=== PATIENT | male | born 1945 | race Caucasian/White ===

== ENCOUNTER → 2017-01-18 | Outpatient (CLI) | payer MEDICARE ==
[~2017-01-18] MED LIST: ASPIRIN ADULT L81 M1 PO; CARVEDILOL12.5 MG PO; CIPROFLOXACIN500 MG PO; CLONIDINE0.1 MG PO; COLACE100 MG PO; CYMBALTA60 MG PO; GABAPENTIN300 M1 PO; HUMALOG100 U/ML SC; KLOR-CON20 MEQ PO; LANTUS100 U/ML SC; LASIX40 MG PO; LISINOPRIL10 MG PO; LISINOPRIL20 MG PO; LOVENOX30 MG/0.3 SC; METFORMIN1000 MG PO; METFORMIN500 MG PO; MIRALAX17 GM/PACK PO; NEURONTIN300 MG PO; NORVASC5 MG PO; NOVOLOG1 UNIT/0.0; NOVOLOG1 UNIT/0.0 SC; OXY IR5 MG PO; OXYCODONE5 M1 PO; PRAVACHOL20 MG PO; PROTONIX40 MG PO; QUINAPRIL5 MG PO; TEMAZEPAM30 MG PO; VITAMIN D1000 IU PO; ZOFRAN4 MG PO; ZYVOX600 MG PO
== END | disposition home or self-care (01) ==
LOC: CT 15:44
DX: I10 Essential (primary) hypertension (principal); R26.89 Other abnormalities of gait and mobility; R42 Dizziness and giddiness

== ENCOUNTER 2017-01-21 10:26 | Inpatient (IN) | payer MEDICARE ==
[~2017-01-21] VITALS: Ht 170.1 cm; Wt 68.0 kg
[2017-01-21] VITALS (9 sets, daily range): BP systolic 143–210; BP diastolic 71–122
[~2017-01-21 10:26] MED LIST changes: -ASPIRIN ADULT L81 M1 PO; -LISINOPRIL20 MG PO
[2017-01-21 11:06] LABS: BASO % 0.5 % (0.0-1.0); EOS # 0.2 10*3/uL (0.0-0.4); EOS % 3.2 % (1.0-4.0); HEMATOCRIT 35.7 % (42.0-52.0); HEMOGLOBIN 11.9 g/dl (14.0-18.0); LYMPH # 0.9 10*3/uL (1.3-4.4); MEAN CORPUSCULAR HGB 27.7 pg (27.0-31.0); MEAN CORPUSCULAR HGB CONC 33.3 g/dl (33.0-37.0); MEAN PLATELET VOLUME 9.3 fl (9.6-12.3); MONO # 0.6 10*3/uL (0.1-1.0); MONO % 10.2 % (3.0-9.0); NEUT % 70.7 % (47.0-73.0); PLATELET COUNT AUTOMATED 230 10*3/uL (130-400); RED CELL DISTRI WIDTH 13.1 % (0-14.5); WHITE BLOOD COUNT 5.7 10*3/uL (4.8-10.8)
[2017-01-21 11:18] LABS: PROTHROMBIN TIME 10.1 SECONDS (8.9-12.2)
[2017-01-21 11:24] LABS: ALBUMIN 2.8 gm/dl (3.1-4.5); BILIRUBIN, TOTAL 0.4 mg/dl (0.2-1.0); TOTAL PROTEIN 6.3 gm/dL (6.4-8.2)
[2017-01-21 11:29] LABS: C-REACTIVE PROTEIN 0.56 MG/DL (0-0.3); CKMB 1.4 ng/ml (0.5-3.6); MAGNESIUM 1.7 mg/dL (1.5-2.1); POTASSIUM 3.7 mmol/L (3.5-5.1); TROPONIN I 0.016 ng/ml (<0.045)
[2017-01-21] MEDS ORDERED: ASPIRIN ADULT L81 M1 PO (13:34)
[2017-01-21] MEDS ORDERED: LISINOPRIL20 MG PO (13:34)
[2017-01-22] VITALS: BP 134/88
[2017-01-22 06:49] LABS: BASO % 0.6 % (0.0-1.0); EOS # 0.3 10*3/uL (0.0-0.4); EOS % 3.8 % (1.0-4.0); HEMATOCRIT 37.8 % (42.0-52.0); HEMOGLOBIN 12.4 g/dl (14.0-18.0); LYMPH # 1.1 10*3/uL (1.3-4.4); LYMPH % 16.2 % (27.0-41.0); MEAN CELL VOLUME 84.2 fl (80.0-94.0); MEAN CORPUSCULAR HGB 27.6 pg (27.0-31.0); MEAN CORPUSCULAR HGB CONC 32.8 g/dl (33.0-37.0); MEAN PLATELET VOLUME 9.6 fl (9.6-12.3); MONO # 0.5 10*3/uL (0.1-1.0); MONO % 7.5 % (3.0-9.0); NEUT # 4.7 10*3/uL (2.3-7.9); NEUT % 71.3 % (47.0-73.0); PLATELET COUNT AUTOMATED 272 10*3/uL (130-400); RED BLOOD COUNT 4.49 10*6/uL (4.50-5.90); RED CELL DISTRI WIDTH 13.3 % (0-14.5); WHITE BLOOD COUNT 6.6 10*3/uL (4.8-10.8)
[2017-01-22 07:32] LABS: ALBUMIN 2.6 gm/dl (3.1-4.5); POTASSIUM 3.6 mmol/L (3.5-5.1); TOTAL PROTEIN 6.1 gm/dL (6.4-8.2)
[2017-01-22 07:43] LABS: BILIRUBIN, TOTAL 0.5 mg/dl (0.2-1.0); FREE T4 1.1 ng/dl (0.76-1.46); THYROID STIM HORMONE (HS) 1.43 uIU/ml (0.358-4.75)
[2017-01-22 08:00] VITALS: BP 146/89
[2017-01-22 09:30] LABS: FOLIC ACID 10.62 ng/mL (>5.38)
[2017-01-22 12:00] VITALS: BP 150/76
[2017-01-22 16:00] VITALS: BP 118/72
[2017-01-22 20:00] VITALS: BP 116/78; BP 94/62
[2017-01-23] VITALS: BP 131/88
[2017-01-23 04:25] VITALS: BP 145/84
[2017-01-23 08:00] VITALS: BP 128/81
[2017-01-23 12:00] VITALS: BP 126/78
[2017-01-23 16:00] VITALS: BP 129/72
[2017-01-23 20:00] VITALS: BP 125/87
[2017-01-24] VITALS: BP 102/55
[2017-01-24 08:00] VITALS: BP 136/70
[2017-01-24 12:00] VITALS: BP 100/58
== END 2017-01-24 14:00 | disposition other institution (70) | DRG 637 ==
LOC: ED 10:26 → EDHOLD 12:11 → 4E 12:11
PROVIDERS: Emergency Medicine; Internal Medicine Hospice and Palliative Medicine
DX: E11.65 Type 2 diabetes mellitus with hyperglycemia (principal); E43 Unspecified severe protein-calorie malnutrition; E11.22 Type 2 diabetes mellitus with diabetic chronic kidney disease; N18.3 Chronic kidney disease, stage 3 (moderate); F33.9 Major depressive disorder, recurrent, unspecified; E87.1 Hypo-osmolality and hyponatremia; I16.0 Hypertensive urgency; D64.9 Anemia, unspecified; I12.9 Hypertensive chronic kidney disease with stage 1 through stage 4 chronic kidney disease, or unspecified chronic kidney disease; E78.5 Hyperlipidemia, unspecified; R00.0 Tachycardia, unspecified; D72.810 Lymphocytopenia; R74.8 Abnormal levels of other serum enzymes; I65.02 Occlusion and stenosis of left vertebral artery; I77.1 Stricture of artery; I69.331 Monoplegia of upper limb following cerebral infarction affecting right dominant side; Z80.0 Family history of malignant neoplasm of digestive organs; Z88.0 Allergy status to penicillin; Z85.46 Personal history of malignant neoplasm of prostate; Z79.4 Long term (current) use of insulin; Z79.82 Long term (current) use of aspirin; Z79.84 Long term (current) use of oral hypoglycemic drugs; Z79.899 Other long term (current) drug therapy; Z68.23 Body mass index [BMI] 23.0-23.9, adult

== ENCOUNTER → 2017-03-22 | Outpatient (CLI) | payer MEDICARE ==
[~2017-03-22] MED LIST changes: +ASPIRIN ADULT L81 M1 PO; +LISINOPRIL20 MG PO
[2017-03-22 10:47] LABS: BASO % 0.6 % (0.0-1.0); EOS # 0.2 10*3/uL (0.0-0.4); EOS % 2.7 % (1.0-4.0); HEMATOCRIT 34.3 % (42.0-52.0); HEMOGLOBIN 11.6 g/dl (14.0-18.0); LYMPH # 1.7 10*3/uL (1.3-4.4); LYMPH % 23.5 % (27.0-41.0); MEAN CELL VOLUME 83.9 fl (80.0-94.0); MEAN CORPUSCULAR HGB 28.4 pg (27.0-31.0); MEAN CORPUSCULAR HGB CONC 33.8 g/dl (33.0-37.0); MEAN PLATELET VOLUME 9.6 fl (9.6-12.3); MONO # 0.8 10*3/uL (0.1-1.0); MONO % 11.3 % (3.0-9.0); NEUT # 4.4 10*3/uL (2.3-7.9); NEUT % 61.3 % (47.0-73.0); PLATELET COUNT AUTOMATED 305 10*3/uL (130-400); RED BLOOD COUNT 4.09 10*6/uL (4.50-5.90); RED CELL DISTRI WIDTH 13.7 % (0-14.5); WHITE BLOOD COUNT 7.1 10*3/uL (4.8-10.8)
[2017-03-22 11:22] LABS: ALBUMIN 3.1 gm/dl (3.1-4.5); BILIRUBIN, TOTAL 0.4 mg/dl (0.2-1.0); POTASSIUM 4.3 mmol/L (3.5-5.1)
== END | disposition home or self-care (01) ==
LOC: LAB 10:18
PROVIDERS: Internal Medicine Hematology & Oncology
DX: C61 Malignant neoplasm of prostate (principal); N18.3 Chronic kidney disease, stage 3 (moderate)

== ENCOUNTER 2017-05-10 19:27 | Emergency (ER) | payer MEDICARE ==
[~2017-05-10] VITALS: Wt 81.6 kg
[2017-05-10 19:57] LABS: BASO % 0.2 % (0.0-1.0); HEMATOCRIT 43.1 % (42.0-52.0); HEMOGLOBIN 14.5 g/dl (14.0-18.0); IG # 0.1 10*3/uL (0.0-0.1); LYMPH % 5.9 % (27.0-41.0); MEAN CELL VOLUME 83.2 fl (80.0-94.0); MEAN CORPUSCULAR HGB CONC 33.6 g/dl (33.0-37.0); MEAN PLATELET VOLUME 10.4 fl (9.6-12.3); MONO # 0.8 10*3/uL (0.1-1.0); MONO % 5.1 % (3.0-9.0); NEUT # 14.5 10*3/uL (2.3-7.9); NEUT % 88.4 % (47.0-73.0); PLATELET COUNT AUTOMATED 328 10*3/uL (130-400); RED BLOOD COUNT 5.18 10*6/uL (4.50-5.90); RED CELL DISTRI WIDTH 13.4 % (0-14.5); WHITE BLOOD COUNT 16.4 10*3/uL (4.8-10.8)
[2017-05-10 20:08] LABS: PROTHROMBIN TIME 10.6 SECONDS (9.0-12.4)
[2017-05-10 20:13] LABS: BILIRUBIN NEGATIVE (NEGATIVE); BLOOD 2+ (NEGATIVE); CLARITY CLEAR (CLEAR); COLOR YELLOW (YELLOW); GLUCOSE 3+ (NEGATIVE); KETONE 1+ (NEGATIVE); LEUKO ESTERASE NEGATIVE (NEGATIVE); NITRITE NEGATIVE (NEGATIVE); PROTEIN 2+ (NEGATIVE); UROBILINOGEN 0.2 E.U./dl (0.2-1.0)
[2017-05-10 20:20] LABS: BACTERIA TRACE; URINE REFLEX COMMENT YES (NO)
[2017-05-10 20:22] LABS: ALBUMIN 3.5 gm/dl (3.1-4.5); BILIRUBIN, TOTAL 0.7 mg/dl (0.2-1.0); POTASSIUM 5.7 mmol/L (3.5-5.1)
[2017-05-10 20:26] LABS: TROPONIN I 0.111 ng/ml (<0.045)
[2017-05-10 21:54] LABS: LA>2 REFLEX 2 HR DRAW NOW
== END 2017-05-10 22:41 | disposition short-term general hospital (02) ==
LOC: ED 19:27
PROVIDERS: Nurse Practitioner Family
DX: R73.9 Hyperglycemia, unspecified (principal); R41.82 Altered mental status, unspecified; E87.2 Acidosis; I12.9 Hypertensive chronic kidney disease with stage 1 through stage 4 chronic kidney disease, or unspecified chronic kidney disease; E11.22 Type 2 diabetes mellitus with diabetic chronic kidney disease; N18.9 Chronic kidney disease, unspecified; E78.5 Hyperlipidemia, unspecified; Z86.73 Personal history of transient ischemic attack (TIA), and cerebral infarction without residual deficits

== ENCOUNTER 2017-06-01 17:14 | Emergency (ER) | payer MEDICARE ==
[~2017-06-01] VITALS: Ht 167.6 cm; Wt 69.9 kg
[2017-06-01 17:50] LABS: BASO % 0.5 % (0.0-1.0); EOS # 0.3 10*3/uL (0.0-0.4); EOS % 4.5 % (1.0-4.0); HEMOGLOBIN 7.4 g/dl (14.0-18.0); LYMPH # 1.1 10*3/uL (1.3-4.4); MEAN CELL VOLUME 88.1 fl (80.0-94.0); MEAN CORPUSCULAR HGB 28.4 pg (27.0-31.0); MEAN CORPUSCULAR HGB CONC 32.2 g/dl (33.0-37.0); MEAN PLATELET VOLUME 8.6 fl (9.6-12.3); MONO # 0.8 10*3/uL (0.1-1.0); MONO % 12.8 % (3.0-9.0); NEUT # 3.7 10*3/uL (2.3-7.9); NEUT % 62.4 % (47.0-73.0); PLATELET COUNT AUTOMATED 349 10*3/uL (130-400); RED BLOOD COUNT 2.61 10*6/uL (4.50-5.90)
[2017-06-01 18:00] LABS: ACT PARTIAL THROMBO TIME 30.6 SECONDS (20.8-31.5)
[2017-06-01 18:06] LABS: CREATININE 1.88 mg/dL (0.70-1.30); MAGNESIUM 1.6 mg/dL (1.5-2.1); POTASSIUM 4.3 mmol/L (3.5-5.1); TOTAL PROTEIN 6.2 gm/dL (6.4-8.2)
[2017-06-01] MEDS ORDERED: [UNRECOGNIZED DRUG - REMARK] IV (18:22)
[2017-06-04] MEDS ORDERED: VITAMIN D31000 UNIT PO (10:27)
[2017-06-04] MEDS ORDERED: PROBIOTIC250 MG PO (10:27)
[2017-06-04] MEDS ORDERED: LIPITOR10 MG PO (10:28)
[2017-06-04] MEDS ORDERED: OMEPRAZOLE D/R20 MG PO (10:29)
[2017-06-04] MEDS ORDERED: MULTI-VITAMIN1 EACH PO (10:30)
[2017-06-04] MEDS ORDERED: METOPROLOL PO (10:30)
[2017-06-04] MEDS ORDERED: [UNRECOGNIZED DRUG - SUPPLY] IV (10:32)
[2017-06-04] MEDS ORDERED: HEPARIN 1010 UNIT/1 IV (10:32)
[2017-06-04] MEDS ORDERED: LANTUS SOL100 UNIT/1 SC (10:33)
[2017-06-04] MEDS ORDERED: BIOTENE DRY MOUTH (10:35)
[2017-06-04] MEDS ORDERED: [UNRECOGNIZED DRUG - OTHER] (10:37)
[2017-06-04] MEDS ORDERED: VANCOMYCIN HYD750 MG IV (10:39)
== END 2017-06-01 20:01 | disposition home or self-care (01) ==
LOC: ED 17:14
PROVIDERS: Emergency Medicine
DX: D64.9 Anemia, unspecified (principal); R53.83 Other fatigue; I12.9 Hypertensive chronic kidney disease with stage 1 through stage 4 chronic kidney disease, or unspecified chronic kidney disease; E11.22 Type 2 diabetes mellitus with diabetic chronic kidney disease; N18.9 Chronic kidney disease, unspecified; E78.5 Hyperlipidemia, unspecified; E11.65 Type 2 diabetes mellitus with hyperglycemia; Z98.890 Other specified postprocedural states; Z85.46 Personal history of malignant neoplasm of prostate; Z86.73 Personal history of transient ischemic attack (TIA), and cerebral infarction without residual deficits; Z88.0 Allergy status to penicillin; Z79.82 Long term (current) use of aspirin; Z79.899 Other long term (current) drug therapy

== ENCOUNTER → 2017-06-04 | Outpatient (CLI) | payer MEDICARE ==
[2017-06-04] VITALS (18 sets, daily range): BP systolic 109–185; BP diastolic 63–92
[~2017-06-04] MED LIST changes: +BIOTENE DRY MOUTH; +HEPARIN 1010 UNIT/1 IV; +LANTUS SOL100 UNIT/1 SC; +LIPITOR10 MG PO; +METOPROLOL PO; +MULTI-VITAMIN1 EACH PO; +OMEPRAZOLE D/R20 MG PO; +PROBIOTIC250 MG PO; +VANCOMYCIN HYD750 MG IV; +VITAMIN D31000 UNIT PO; +[UNRECOGNIZED DRUG - OTHER]; +[UNRECOGNIZED DRUG - REMARK] IV; +[UNRECOGNIZED DRUG - SUPPLY] IV
--- NOTE | 2017-06-04 15:15 | NUR ---
RECEIVED FROM SURGERY FOR BLOOD TRANSFUSION. AWAITING LAB TO DRAW THE IN VIVO DRAW.
--- NOTE | 2017-06-04 17:41 | NUR ---
PATIENT DOES NOT KNOW HIS MED LIST - JAIL BRINGS IT IN AND HE TAKES IT PER THE PATIENT.
--- NOTE | 2017-06-04 18:26 | NUR ---
CALLED [facility] THE [employer] LOGGER TO [employer] STRIPPER THE PATIENT - PATIENT HAD A 2ND SMALL BOWEL MOVEMENT WITH URINE. PICC LINE FLUSHED
--- NOTE | 2017-06-04 18:34 | NUR ---
PATIENT LEFT THE HOSPITAL
== END | disposition home or self-care (01) ==
LOC: TRNFUSION 06-03 10:56
DX: D58.2 Other hemoglobinopathies (principal)

== ENCOUNTER → 2017-09-11 | Outpatient (CLI) | payer MEDICARE ==
[2017-09-11 10:32] LABS: BASO % 0.5 % (0.0-1.0); EOS # 0.2 10*3/uL (0.0-0.4); EOS % 3.7 % (1.0-4.0); LYMPH # 1.4 10*3/uL (1.3-4.4); MEAN CELL VOLUME 83.1 fl (80.0-94.0); MEAN CORPUSCULAR HGB 28.6 pg (27.0-31.0); MEAN CORPUSCULAR HGB CONC 34.4 g/dl (33.0-37.0); MEAN PLATELET VOLUME 9.2 fl (9.6-12.3); MONO # 0.6 10*3/uL (0.1-1.0); MONO % 9.5 % (3.0-9.0); NEUT # 3.7 10*3/uL (2.3-7.9); NEUT % 61.8 % (47.0-73.0); PLATELET COUNT AUTOMATED 247 10*3/uL (130-400); RED BLOOD COUNT 3.85 10*6/uL (4.50-5.90); RED CELL DISTRI WIDTH 14.8 % (0-14.5); WHITE BLOOD COUNT 5.9 10*3/uL (4.8-10.8)
[2017-09-11 10:38] LABS: ALBUMIN 3.3 gm/dl (3.1-4.5); CREATININE 1.97 mg/dL (0.70-1.30); POTASSIUM 3.7 mmol/L (3.5-5.1); TOTAL PROTEIN 7.1 gm/dL (6.4-8.2)
== END | disposition home or self-care (01) ==
LOC: LAB 09:48
PROVIDERS: Internal Medicine Hematology & Oncology
DX: C61 Malignant neoplasm of prostate (principal); N18.3 Chronic kidney disease, stage 3 (moderate)

== ENCOUNTER 2017-10-17 20:15 | Inpatient (IN) | payer MEDICARE ==
[2017-10-17] VITALS (9 sets, daily range): BP systolic 154–200; BP diastolic 90–130
[~2017-10-17] VITALS: Ht 172.7 cm; Wt 70.4 kg
--- NOTE | ~2017-10-17 | CON ---
[place], [place] REPORT OF CONSULTATION NAME: CIARA AVILES UNIT #: [id number] ROOM: 409 DOCTOR: GEOVANNI GODFREY MD BIRTHDATE: [birth year] DOS: 10/23/2017 CHIEF COMPLAINT: "I realize there is nothing happening anymore." SUMMARY OF THE VISIT: The patient was interviewed with his son in the room. He reports that he has been here for about 5 or 6 days, he is uncertain. He states that he is feeling much better now. He no longer complained of aliens being here and the trees being infected by some type of foreign substance. He was fairly conversant and pleasant. Son reports that suddenly yesterday the symptoms cleared and he has been normal for the last 36-48 hours. MENTAL STATUS: He is alert and oriented with just some time gaps, but that is more than likely related to him being in the hospital. He is pleasant and cooperative. He convincingly denies psychotic symptoms. There is no leslie present. Short term, intermediate, and long-term memory are relatively intact. PLAN: At this point, this seems like a resolved delirium. I see no further criteria to deem him incompetent nor do I have criteria to suggest that he require inpatient hospitalization in the [facility]. At this point, the patient can safely be discharged back into the community. GEOVANNI GODFREY MD CM:CONSTR:REPORT OF CONSULTATION 1056 10/23/17 1414 interface
--- NOTE | ~2017-10-17 | CON ---
[place], [place] REPORT OF CONSULTATION NAME: CIARA AVILES UNIT #: [id number] ROOM: 409 DOCTOR: GEOVANNI GODFREY MD BIRTHDATE: [birth year] DOS: 10/21/2017 CHIEF COMPLAINT: "Oh, I am here because I had a stroke." HISTORY OF PRESENT ILLNESS: This is a 72-year-old white male who presented to the Emergency Room at [facility] with new onset mental status changes and increased left-sided weakness. Since he has been hospitalized here at the hospital, the patient has been rather bizarre. He has shifted in and out of being alert and oriented to periods of extreme confusion as well as extreme paranoia. Most recently, he believes that aliens have come down to the planet and have infected trees with some type of substance that if you touch the tree, you will become weird and wacky. He called his family members to warn them not to touch the trees. He believes that things are being piped into his room and that people are trying to get him. His daughter who was present in the room at that time stated that the last time something like this happen it was because he had MRSA of the blood and once this was cleared his mental status completely cleared. This is a new onset of confusion and psychosis. MENTAL STATUS: He is alert and oriented with some time gaps. Mood does seem to be fairly euthymic. Affect appropriate. He is very delusional and paranoid. For the most part memory is fairly intact. DIAGNOSIS: Brief psychotic disorder. PLAN: I have ordered multiple lab work for vitamin D, vitamin B12, serum ammonia and TSH just to further rule out any organic factors. I will hold off on starting him on any medication for the psychosis. He would be a good candidate for the [facility]. Once you feel that he is medically cleared, he would have to come voluntary as he is not suicidal or homicidal. Please keep me informed of your decision and I will be glad to assist you in the future. GEOVANNI GODFREY MD CM:CONSTR:REPORT OF CONSULTATION 1034 10/21/17 1041 interface
[2017-10-17 20:47] LABS: BASO % 0.5 % (0.0-1.0); EOS # 0.2 10*3/uL (0.0-0.4); EOS % 1.8 % (1.0-4.0); HEMOGLOBIN 11.5 g/dl (14.0-18.0); LYMPH % 11.8 % (27.0-41.0); MEAN CELL VOLUME 83.7 fl (80.0-94.0); MEAN CORPUSCULAR HGB 28.3 pg (27.0-31.0); MEAN CORPUSCULAR HGB CONC 33.8 g/dl (33.0-37.0); MEAN PLATELET VOLUME 9.4 fl (9.6-12.3); MONO # 0.5 10*3/uL (0.1-1.0); MONO % 6.2 % (3.0-9.0); NEUT # 6.6 10*3/uL (2.3-7.9); NEUT % 79.3 % (47.0-73.0); PLATELET COUNT AUTOMATED 269 10*3/uL (130-400); RED BLOOD COUNT 4.06 10*6/uL (4.50-5.90); RED CELL DISTRI WIDTH 13.1 % (0-14.5); WHITE BLOOD COUNT 8.3 10*3/uL (4.8-10.8)
[2017-10-17 21:03] LABS: ALBUMIN 3.2 gm/dl (3.1-4.5); CREATININE 2.18 mg/dL (0.70-1.30); POTASSIUM 5.2 mmol/L (3.5-5.1); TOTAL PROTEIN 7.2 gm/dL (6.4-8.2)
[2017-10-17 21:09] LABS: ACT PARTIAL THROMBO TIME 26.8 SECONDS (20.8-31.5)
[2017-10-17 21:11] LABS: THYROID STIM HORMONE (HS) 1.85 uIU/ml (0.358-4.75)
[2017-10-17 22:11] LABS: BILIRUBIN NEGATIVE (NEGATIVE); BLOOD TRACE-LYSED (NEGATIVE); CLARITY SL CLOUDY (CLEAR); COLOR YELLOW (YELLOW); GLUCOSE 3+ (NEGATIVE); KETONE TRACE (NEGATIVE); LEUKO ESTERASE NEGATIVE (NEGATIVE); NITRITE NEGATIVE (NEGATIVE); SPECIFIC GRAVITY 1.015 (1.005-1.030); UROBILINOGEN 0.2 E.U./dl (0.2-1.0)
[2017-10-17 22:12] LABS: URINE AMPHETAMINES < 1000 (1000ng/ml); URINE BARBITURATES < 200 (200ng/ml); URINE BENZODIAZEPINES < 200 (200ng/ml); URINE CANNABINOIDS (THC) < 50 (50ng/ml); URINE COCAINE < 300 (300ng/ml); URINE METHADONE < 300 (300ng/ml); URINE OPIATES < 300 (300ng/ml)
[2017-10-17 22:13] LABS: URINE PHENCYCLIDINE < 25 (25ng/ml)
[2017-10-17 22:22] LABS: BACTERIA 1+
[2017-10-17 22:24] LABS: EPITHELIAL CELLS 0-2
[2017-10-17] MEDS ORDERED: NEURONTIN300 MG PO (22:48)
[2017-10-17] MEDS ORDERED: TRAZODONE50 MG PO (22:48)
[2017-10-17] MEDS ORDERED: OMEPRAZOLE20 M2 PO (22:49)
[2017-10-17] MEDS ORDERED: LOPRESSOR25 MG PO (22:49)
[2017-10-17] MEDS ORDERED: VITAMIN D-32000 UNI1 PO (22:50)
[2017-10-17] MEDS ORDERED: MILLTRIUM SENI1 EACH PO (22:51)
[2017-10-17] MEDS ORDERED: LIPITOR10 MG PO (22:52)
[2017-10-17] MEDS ORDERED: ASPIRIN81 M1 PO (22:52)
[2017-10-17] MEDS ORDERED: IRON325 M1 PO (22:53)
[2017-10-17] MEDS ORDERED: HUMALOG MI100 UNIT/1 SQ (22:54)
[2017-10-17] MEDS ORDERED: LANTUS SOL100 UNIT/1 SQ (22:54)
[2017-10-17] MEDS ORDERED: LOMOTIL 2.5-0.1 EACH PO (22:55)
[2017-10-18] VITALS: BP 172/83
[2017-10-18 02:43] LABS: BASO % 0.4 % (0.0-1.0); EOS # 0.1 10*3/uL (0.0-0.4); EOS % 1.1 % (1.0-4.0); HEMATOCRIT 30.9 % (42.0-52.0); HEMOGLOBIN 10.4 g/dl (14.0-18.0); LYMPH # 1.1 10*3/uL (1.3-4.4); LYMPH % 11.8 % (27.0-41.0); MEAN CORPUSCULAR HGB 28.3 pg (27.0-31.0); MEAN CORPUSCULAR HGB CONC 33.7 g/dl (33.0-37.0); MEAN PLATELET VOLUME 9.4 fl (9.6-12.3); MONO # 0.6 10*3/uL (0.1-1.0); MONO % 6.7 % (3.0-9.0); NEUT # 7.6 10*3/uL (2.3-7.9); NEUT % 79.6 % (47.0-73.0); PLATELET COUNT AUTOMATED 263 10*3/uL (130-400); RED BLOOD COUNT 3.68 10*6/uL (4.50-5.90); RED CELL DISTRI WIDTH 13.1 % (0-14.5); WHITE BLOOD COUNT 9.5 10*3/uL (4.8-10.8)
[2017-10-18 03:03] LABS: ALBUMIN 2.6 gm/dl (3.1-4.5); CREATININE 1.93 mg/dL (0.70-1.30); FREE T4 1.21 ng/dl (0.76-1.46); PHOSPHOROUS 2.1 mg/dL (2.5-4.9); POTASSIUM 4.3 mmol/L (3.5-5.1); TOTAL PROTEIN 5.9 gm/dL (6.4-8.2)
[2017-10-18 03:08] LABS: THYROID STIM HORMONE (HS) 0.852 uIU/ml (0.358-4.75)
[2017-10-18 04:00] VITALS: BP 150/78
[2017-10-18 08:00] VITALS: BP 120/66
[2017-10-18] MEDS ORDERED: HUMALOG100 UNIT/2 SC (11:15)
[2017-10-18 12:00] VITALS: BP 90/46
[2017-10-18 16:00] VITALS: BP 95/44
[2017-10-18 20:00] VITALS: BP 134/67
[2017-10-19] VITALS: BP 129/55
[2017-10-19 06:29] LABS: BASO % 0.4 % (0.0-1.0); EOS # 0.1 10*3/uL (0.0-0.4); EOS % 1.2 % (1.0-4.0); HEMATOCRIT 29.8 % (42.0-52.0); LYMPH # 1.9 10*3/uL (1.3-4.4); MEAN CELL VOLUME 85.6 fl (80.0-94.0); MEAN CORPUSCULAR HGB 28.7 pg (27.0-31.0); MEAN CORPUSCULAR HGB CONC 33.6 g/dl (33.0-37.0); MONO % 10.6 % (3.0-9.0); NEUT # 6.3 10*3/uL (2.3-7.9); NEUT % 67.3 % (47.0-73.0); PLATELET COUNT AUTOMATED 276 10*3/uL (130-400); RED BLOOD COUNT 3.48 10*6/uL (4.50-5.90); RED CELL DISTRI WIDTH 13.4 % (0-14.5); WHITE BLOOD COUNT 9.3 10*3/uL (4.8-10.8)
[2017-10-19 06:41] LABS: CREATININE 2.08 mg/dL (0.70-1.30); POTASSIUM 3.6 mmol/L (3.5-5.1)
[2017-10-19 08:00] VITALS: BP 114/62
[2017-10-19 12:00] VITALS: BP 113/51
[2017-10-19 16:54] VITALS: BP 113/83
[2017-10-19 20:39] VITALS: BP 177/75
[2017-10-20] VITALS: BP 114/76
[2017-10-20 06:06] LABS: BASO % 0.5 % (0.0-1.0); EOS # 0.2 10*3/uL (0.0-0.4); EOS % 3.8 % (1.0-4.0); HEMATOCRIT 29.4 % (42.0-52.0); HEMOGLOBIN 9.9 g/dl (14.0-18.0); LYMPH # 1.3 10*3/uL (1.3-4.4); LYMPH % 21.3 % (27.0-41.0); MEAN CELL VOLUME 86.2 fl (80.0-94.0); MEAN CORPUSCULAR HGB CONC 33.7 g/dl (33.0-37.0); MEAN PLATELET VOLUME 9.5 fl (9.6-12.3); MONO # 0.6 10*3/uL (0.1-1.0); MONO % 8.9 % (3.0-9.0); NEUT # 4.1 10*3/uL (2.3-7.9); NEUT % 65.2 % (47.0-73.0); PLATELET COUNT AUTOMATED 253 10*3/uL (130-400); RED BLOOD COUNT 3.41 10*6/uL (4.50-5.90); RED CELL DISTRI WIDTH 13.3 % (0-14.5); WHITE BLOOD COUNT 6.3 10*3/uL (4.8-10.8)
[2017-10-20 06:33] LABS: CREATININE 1.94 mg/dL (0.70-1.30)
[2017-10-20 08:00] VITALS: BP 114/70
[2017-10-20 10:09] VITALS: BP 166/89
[2017-10-20 16:00] VITALS: BP 165/85
[2017-10-20 20:00] VITALS: BP 159/78
[2017-10-21] VITALS: BP 197/84
[2017-10-21 04:00] VITALS: BP 156/90
[2017-10-21 06:36] LABS: CREATININE 1.83 mg/dL (0.70-1.30); POTASSIUM 4.2 mmol/L (3.5-5.1)
[2017-10-21 06:45] LABS: BASO % 0.5 % (0.0-1.0); EOS # 0.3 10*3/uL (0.0-0.4); EOS % 4.5 % (1.0-4.0); HEMATOCRIT 30.4 % (42.0-52.0); HEMOGLOBIN 10.2 g/dl (14.0-18.0); LYMPH # 1.1 10*3/uL (1.3-4.4); LYMPH % 16.9 % (27.0-41.0); MEAN CELL VOLUME 84.9 fl (80.0-94.0); MEAN CORPUSCULAR HGB 28.5 pg (27.0-31.0); MEAN CORPUSCULAR HGB CONC 33.6 g/dl (33.0-37.0); MEAN PLATELET VOLUME 9.7 fl (9.6-12.3); MONO # 0.7 10*3/uL (0.1-1.0); MONO % 10.8 % (3.0-9.0); NEUT # 4.4 10*3/uL (2.3-7.9); NEUT % 66.8 % (47.0-73.0); PLATELET COUNT AUTOMATED 276 10*3/uL (130-400); RED BLOOD COUNT 3.58 10*6/uL (4.50-5.90); RED CELL DISTRI WIDTH 13.1 % (0-14.5); WHITE BLOOD COUNT 6.5 10*3/uL (4.8-10.8)
[2017-10-21 08:00] VITALS: BP 134/74
[2017-10-21 12:00] VITALS: BP 128/80
[2017-10-21 12:43] LABS: VITAMIN D, 25-HYDROXY 25.2 ng/mL (30-100)
[2017-10-21 16:00] VITALS: BP 137/73
[2017-10-21 20:00] VITALS: BP 144/83
[2017-10-22] VITALS: BP 112/64
[2017-10-22 05:54] LABS: CREATININE 1.76 mg/dL (0.70-1.30); POTASSIUM 3.9 mmol/L (3.5-5.1)
[2017-10-22 06:35] LABS: BASO % 0.3 % (0.0-1.0); EOS # 0.3 10*3/uL (0.0-0.4); EOS % 3.6 % (1.0-4.0); HEMATOCRIT 27.8 % (42.0-52.0); HEMOGLOBIN 9.4 g/dl (14.0-18.0); LYMPH # 1.3 10*3/uL (1.3-4.4); LYMPH % 18.8 % (27.0-41.0); MEAN CELL VOLUME 85.8 fl (80.0-94.0); MEAN CORPUSCULAR HGB CONC 33.8 g/dl (33.0-37.0); MEAN PLATELET VOLUME 9.6 fl (9.6-12.3); MONO # 0.8 10*3/uL (0.1-1.0); MONO % 11.4 % (3.0-9.0); NEUT # 4.5 10*3/uL (2.3-7.9); NEUT % 65.6 % (47.0-73.0); PLATELET COUNT AUTOMATED 266 10*3/uL (130-400); RED BLOOD COUNT 3.24 10*6/uL (4.50-5.90); RED CELL DISTRI WIDTH 13.3 % (0-14.5); WHITE BLOOD COUNT 6.9 10*3/uL (4.8-10.8)
[2017-10-22 08:00] VITALS: BP 109/59
[2017-10-22 12:00] VITALS: BP 117/73
[2017-10-22] MEDS ORDERED: CLOPIDOGREL75 MG PO (14:34)
[2017-10-22 16:00] VITALS: BP 126/77
[2017-10-22 20:00] VITALS: BP 135/77
[2017-10-23] VITALS: BP 155/73
[2017-10-23 08:03] VITALS: BP 100/70
[2017-10-23 11:54] VITALS: BP 103/59
[2017-10-23 16:00] VITALS: BP 102/77
[2017-10-23 20:00] VITALS: BP 95/71
[2017-10-24] VITALS: BP 121/84
[2017-10-24 07:53] VITALS: BP 120/55
[2017-10-24 12:06] VITALS: BP 114/54
[2017-10-24 16:00] VITALS: BP 133/70
[2017-10-24] MEDS ORDERED: NIFEDIPINE ER30 M1 PO (16:39)
[2017-10-24] MEDS ORDERED: AGGRENOX 25/2001 EA PO (16:39)
== END 2017-10-24 17:08 | disposition other institution (70) | DRG 64 ==
LOC: ED 20:15 → 4E 21:59 → EDHOLD 21:59 → ICCU 22:32 → 4E 10-18 13:01
PROVIDERS: Family Medicine; Internal Medicine; Psychiatry & Neurology Psychiatry
DX: I63.9 Cerebral infarction, unspecified (principal); R65.11 Systemic inflammatory response syndrome (SIRS) of non-infectious origin with acute organ dysfunction; G93.41 Metabolic encephalopathy; E87.1 Hypo-osmolality and hyponatremia; I16.1 Hypertensive emergency; F23 Brief psychotic disorder; G81.94 Hemiplegia, unspecified affecting left nondominant side; E13.22 Other specified diabetes mellitus with diabetic chronic kidney disease; D64.9 Anemia, unspecified; Z51.5 Encounter for palliative care; E13.65 Other specified diabetes mellitus with hyperglycemia; D72.810 Lymphocytopenia; E87.5 Hyperkalemia; E83.39 Other disorders of phosphorus metabolism; F32.9 Major depressive disorder, single episode, unspecified; I12.9 Hypertensive chronic kidney disease with stage 1 through stage 4 chronic kidney disease, or unspecified chronic kidney disease; Z66 Do not resuscitate; I16.0 Hypertensive urgency; R80.9 Proteinuria, unspecified; E87.8 Other disorders of electrolyte and fluid balance, not elsewhere classified; E13.649 Other specified diabetes mellitus with hypoglycemia without coma; N18.3 Chronic kidney disease, stage 3 (moderate); Z86.14 Personal history of Methicillin resistant Staphylococcus aureus infection; Z85.46 Personal history of malignant neoplasm of prostate; Z80.0 Family history of malignant neoplasm of digestive organs; Z79.899 Other long term (current) drug therapy; Z79.4 Long term (current) use of insulin; Z79.82 Long term (current) use of aspirin; Z88.0 Allergy status to penicillin

== ENCOUNTER 2017-11-01 12:54 | Inpatient (IN) | payer MEDICARE ==
[~2017-11-01] VITALS: Ht 172.7 cm; Wt 76.4 kg
--- NOTE | ~2017-11-01 | PR ---
[place], [place] PROGRESS NOTE [id number] UNIT #: [id number] ROOM: 504 DOCTOR: BRIANA OBREGON MD BIRTHDATE: [birth year] DOS: SUBJECTIVE: The patient is doing fine without any complaints, but he looks quite short of breath, he easily falls into sleep. OBJECTIVE: VITAL SIGNS: Graphic trend shows a pressure 136/77, pulse of 109, respirations 19, temperature 98.4. LUNGS: Diminished breath sounds, scattered rales and rhonchi bilaterally. HEART: Regular. ABDOMEN: Obese, soft. EXTREMITIES: Without any edema. ASSESSMENT AND PLAN: 1. The patient with bilateral pneumonia on a CT scan of the chest, on multiple antibiotics without much improvement. He continues to remain hypoxic. 2. Acute hypoxic respiratory failure, on high flow O2 with further worsening in his overall condition. He has received maximal treatment plan for almost a week without any improvement at all and so I think at this time, the patient should be considered for hospice. 3. Acute kidney injury seems to be fairly stable. 4. Congestive heart failure, possible diastolic, already on p.o. diuretics. The patient's overall prognosis remains poor and guarded. Social Service will be consulted for hospice care. BRIANA OBREGON MD CM:PNTRANS 0822 BRIANA OBREGON MD 11/08/17 0903 interface
--- NOTE | ~2017-11-01 | PR ---
[place], [place] PROGRESS NOTE NAME: CIARA AVILES UNIT #: [id number] ROOM: 504 DOCTOR: BRIANA OBREGON MD BIRTHDATE: [birth year] DOS: SUBJECTIVE: The patient is fairly awake and alert and oriented this morning and he looks much more stronger and is able to communicate well this morning, in fact he is starting to get grumpy. OBJECTIVE: VITAL SIGNS: Graphic trend shows blood pressure of 120/74, pulse of 117, respirations 18, temperature 98.7, T-max of 100.4. LUNGS: Diminished breath sounds. Scattered rales heard bilaterally. HEART: Regular. ABDOMEN: Obese, soft. EXTREMITIES: Without any edema. LABORATORY DATA: Intake and output negative balance by 721 mL. ASSESSMENT AND PLAN: 1. Multifocal pneumonia, possible gram negative. He also was in the hospital before this admission with pneumonia, so nosocomial infections need to be considered, so I have covered him with broad spectrum antibiotics. Multiple cultures have come back negative. Blood cultures have come back negative. Methicillin-resistant Staphylococcus aureus of the nares is also negative. 2. Hypoglycemia. Blood sugars have gone up. A low dose Lantus will be restarted. He is advised to eat a liberal diet with Boost supplements. 3. Adult failure to thrive. When stable, he will go back to [facility]. BRIANA OBREGON MD CM:PNTRANS [id number] BRIANA OBREGON MD 11/04/17 1337 interface
--- NOTE | ~2017-11-01 | CON ---
[place], [place] REPORT OF CONSULTATION NAME: CIARA AVILES UNIT #: [id number] ROOM: 504 DOCTOR: CHACORTA MARCUS MDLIONEL BIRTHDATE: [birth year] DOS: 11/05/2017 PULMONARY CONSULTATION EVALUATION AND MANAGEMENT CONSULTATION REQUESTED BY: Kandi Garcia MD REASON FOR CONSULTATION: To assess the patient for the current assessment of pneumonia and possible consideration for the bronchoscopy. The history was obtained essentially review of the medical record documentation which was done on this admission from Dr. Kandi Garcia. The patient not able to give any history and cannot communicate patient accurately for his condition. He has been noted high flow oxygen supplementation nasal cannula for the patient with Venturi mask system for the patient for the medical and severe hypoxia at this time. HISTORY OF PRESENT ILLNESS: This is a 72-year-old white male who has been hospitalized on 11/01/2017 from [facility]. The patient was reported with increase of shortness of breath, which has been occurring and also noted with episode of hypoglycemia. Blood sugar in the 30 and 40 range. The patient has been treated for that. He has been noted with progressive increased in shortness of breath, chest congestion and cough as well. The patient has developed progressive worsening of the respiratory failure for this patient with progressive increased oxygen requirement as well. The patient's code status was described as a DNR comfort care for this patient at this time, which has been treated with the medications, palliative care and the antibiotic management. The cough has been noted with some gurgling in the chest. The patient was seen and not able to expectorate any sputum. REVIEW OF SYSTEMS: Cannot be effectively completed due to the patient's inability to verbally communicate. PAST MEDICAL HISTORY: 1. Type 2 diabetes mellitus. 2. Chronic kidney disease stage 4. 3. History of major depression. 4. History of prostate cancer. 5. Mixed hyperlipidemia. 6. Benign essential hypertension. 7. Recent hypoglycemic episodes. 8. Poor healing left heel wound as well. 9. 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 SOCIAL HISTORY: The patient reported nonsmoker lifetime. Current resident of a halfway as well. There was no history of tobacco, alcohol, or illicit drug use reported. PAST SURGICAL HISTORY: The patient was reported: 1. Right hip replacement in the past. 2. Biopsy of the prostate as well. [place], [place] REPORT OF CONSULTATION NAME: CIARA AVILES UNIT #: [id number] ROOM: [facility] DOCTOR: LIONEL CORLEY MD BIRTHDATE: [birth year] FAMILY HISTORY: Noted unknown. CURRENT MEDICATIONS: Administered noted as use of Levemir insulin, trazodone, Lipitor, metoprolol, gabapentin, aspirin, omeprazole, IV vancomycin, Rocephin, and Levaquin. DRUG ALLERGY HISTORY: NOTED ALLERGY TO PENICILLINS. PHYSICAL EXAMINATION: GENERAL: A 72-year-old white male currently noted to be awake with mild tachypnea with rest excessive chest congestion and cough for this patient. Height of 5 feet 8 inches, weight of 176 pounds, BMI 26.7. VITAL SIGNS: Noted as temperature of 101.1 degree Fahrenheit on the 11th and normal temperature this morning. Respiratory recorded as 40-25. Heart rate of 97-117. The blood pressure 138/64 to 120/74. The pulse oxygen saturation was noted as 89% on 100% oxygen supplementation. Venturi mask system to 86% saturation. Previously, the patient was treated with the BiPAP ____ saturation noted 95%. HEENT: Limited exam. The patient appeared to be atraumatic. Eyes nonicterus. Dry oral mucosa was noted. NECK: Supple. There was no JVD elevation. CARDIOVASCULAR: S1, S2 audible. LUNGS: Rhonchorous breathing was noted in the lungs bilaterally and diffusely with scattered occasional wheezing. ABDOMEN: Flat, soft, nontender. Bowel sounds present. EXTREMITIES: The patient without edema, clubbing, cyanosis. SKIN: Chronic changes with scattered bruising of the skin most likely medication related. There were no obvious ulcers or lesions. CENTRAL NERVOUS SYSTEM: Past history of CVA. LABORATORY DATA: Prealbumin noted on 10/30/2047 as 17.0. The CBC for this patient that was done on 11/01/2017, hemoglobin 8.1 and hematocrit 25.0. WBC count normal and platelet count normal. Lactic acid 0.8. The CMP on 11/01/2017, glucose of 35, BUN 50, and creatinine 2.50. The influenza A and B, nasal washing antigen negative on 11/01/2017. The BMP on 11/02/2017, BUN 50, creatinine 2.66, sodium 135. The CBC this morning, WBC count 16.2, hemoglobin 9.5, hematocrit 28.5, platelet count of 294,000. BMP: BUN 69, creatinine 3.40, glucose 348, sodium 135. RADIOLOGIC DATA: The chest x-ray done on 11/01/2017 was noted with finding of congestive heart failure, bilateral small pleural fluid. The chest x-ray on the showed marked worsening congestive heart failure with ____ of the pleural effusions as well. The CT scan of the chest was done without contrast on 11/02/2017 was personally reviewed shows evidence of [id number] bilateral pleural fluid area of compression atelectasis, pneumonia cannot be completely excluded. IMPRESSION: 1. The patient who has been currently admitted to the hospital with noted [place], [place] REPORT OF CONSULTATION NAME: CIARA AVILES UNIT #: [id number] ROOM: [facility] DOCTOR: CHACORTA MARCUS MD,[facility] BIRTHDATE: [birth year] progressive severe hypoxic respiratory failure with result of congestive heart failure, worsening kidney function with basilar areas of lower lobe atelectasis related to compression from the pleural fluid. Addition of pneumonia superimposed cannot be completely excluded. 2. History of past prostate cancer treated as well. 3. Change in mental status secondary to ____ will be also considered. 4. The patient with overall severe debility noted at the present time. PLAN OF MANAGEMENT: Unfortunately with the current comfort care, the patient has limited options of medical management. Certainly, he is not a candidate for bronchoscopy at the present time to help clear secretions. Consider using diuretic therapy, but unfortunately could result in worsening of kidney functions as well adjust the antibiotic according to kidney functions as well. Overall prognosis of the patient remains poor. Consider using the morphine and sulfa for the comfort of the patient to reduce the distress as well. Other supportive therapy and plan of management will be continued. Try to titrate oxygen supplementation best possible to maintain the oxygen saturation 93% or greater. The assessment and management has been discussed with Dr. Kandi Garcia about that. Thanks for allowing me to participate in the care of this patient. LIONEL WHATLEY MD CM:CONSTR:REPORT OF CONSULTATION 1254 11/05/17 2105 interface
--- NOTE | ~2017-11-01 | PR ---
[place], [place] PROGRESS NOTE NAME: CIARA AVILES UNIT #: [id number] ROOM: 504 DOCTOR: BRIANA OBREGON MD BIRTHDATE: [birth year] DOS: 11/05/2017 SUBJECTIVE: The patient is quite this morning. OBJECTIVE: VITAL SIGNS: Graphic trend shows a pressure 138/64, pulse of 94, respirations 24, temperature 98.4. LUNGS: Diminished breath sounds, scattered wheezes, rales and rhonchi. HEART: Tachycardic. ABDOMEN: Soft, scaphoid. EXTREMITIES: Without any edema. ASSESSMENT AND PLAN: 1. Acute hypoxic respiratory failure. The patient has refused to use the BiPAP. 2. Multifocal pneumonia with consolidation on multiple antibiotics. Discussed with Dr. Clark. Consultation has been ordered, may be a candidate for bronchoscopy, may give him some relief in his shortness of breath. 3. Possible sepsis, which has been ruled out with multiple blood negative blood cultures. 4. Acute kidney injury with worsening from diuretics, which was just given as a one-time dose yesterday. He diuresed, but the kidney functions did get worse. So, I will avoid further diuresis because the patient does not seem to have any evidence of congestive heart failure. 5. Type 2 diabetes mellitus with hypoglycemia. Blood sugars are starting to slowly go up, but unfortunately, he is not eating a whole lot of food, so we will not increase the Lantus any further to avoid hypoglycemia. We will cover the high blood sugars with coverage scale. BRIANA OBREGON MD CM:PNTRANS [id number] BRIANA OBREGON MD 11/05/17 1153 interface
--- NOTE | ~2017-11-01 | PR ---
[place], [place] PROGRESS NOTE NAME: CIARA AVILES UNIT #: [id number] ROOM: 504 DOCTOR: CHACORTA MARCUS MD,LIONEL BIRTHDATE: [birth year] DOS: 11/08/2017 SUBJECTIVE: The patient has progressive unconsciousness for the last several hours. Oxygen supplementation is still continued with Optiflow with high flow of oxygen. The patient is noted at this time sleepy and unconscious. He is not showing any signs of respiratory distress. OBJECTIVE: VITAL SIGNS: Shows normal temperature, respiratory rate 18, heart rate 104, blood pressure 109/62. Pulse oxygen saturation with the patient on oxygen supplementation with Optiflow high flow is 94% saturation with 60% oxygen. HEENT: No acute change. NECK: Supple. CARDIOVASCULAR: S1, S2 audible. LUNGS: Decreased breath sounds in the lungs bilaterally without any wheezing. ABDOMEN: Soft, nontender. IMPRESSION: The patient with congestive heart failure, bilateral pleural fluid, possibly superimposed pneumonia, change in mental status and advanced illness. PLAN OF TREATMENT: The patient was recommended at this time the hospice care. Further interim invasive procedures would not be considered. Usual care, other supportive therapy, plan of management. Prognosis of the patient is noted poor. Assessment of the patient was discussed with Dr. Kandi Garcia today. LIONEL WHATLEY MD CM:PNTRANS [phone] LIONEL MARCUS MD 11/09/17 0109 interface
--- NOTE | ~2017-11-01 | WRIGHTHP ---
[place], [place] PATIENT HISTORY AND PHYSICAL EXAM NAME: CIARA AVILES [facility] #: [id number] UNIT #: [id number] ROOM: 504 DOCTOR: BRIANA OBREGON MD BIRTHDATE: [birth year] DOS: 11/01/2017 HISTORY OF PRESENT ILLNESS: The patient is 72 years old. The patient is a resident of [facility], comes in with complaints of shortness of breath. He also was noticed to have low sugar at the [facility]. In the Emergency Room, his blood sugar remained in the 30s and 40s and was started on D10 with continued low blood sugars. The patient says that his appetite is poor and he has not been eating very well. He denies having any chest pains or palpitations. He does have quite a significant shortness of breath this morning, has a poorly healing wound on the left heel, but does not complain of any pain. Does have a cough, but denies having any sputum production. Does not have any urinary symptoms or bowel symptoms. PAST MEDICAL HISTORY: Significant for: 1. Benign hypertension. 2. Type 2 diabetes mellitus with hypoglycemia. 3. Last hospitalization in 10/2017. 4. Chronic kidney disease stage 4. 5. Major depression. 6. CA of the prostate, personal history. 7. Mixed hyperlipidemia. 8. Recent history of subacute right internal capsule infarct. MEDICATIONS: He is on are aspirin 81 daily, atorvastatin 10 daily, vitamin D 2000 units daily, gabapentin 300 t.i.d., metoprolol 12.5 b.i.d., multivitamin 1 tablet daily, Procardia 30 at bedtime, omeprazole 20 daily, trazodone 50 at bedtime, insulin Lantus daily and lispro 10 units twice a day. SOCIAL HISTORY: Nonsmoker. He was living at home before he was hospitalized and placed in a [facility]. PHYSICAL EXAMINATION: GENERAL: He is awake and alert and oriented in significant respiratory distress. VITAL SIGNS: Blood pressure is 82/42, pulse of 109, respirations 20, temperature 101.8. LUNGS: Diminished breath sounds, scattered wheezes and rhonchi. HEART: Regular. ABDOMEN: Obese, soft. EXTREMITIES: With trace edema, left heel stage II ulcer without any evidence of any cellulitis or drainage. ASSESSMENT AND PLAN: 1. Type 2 diabetes mellitus, severe hypoglycemia. The patient has been placed on D10 IV fluids and will check the blood sugars often and will readjust medications. Right now, Lantus and NovoLog are on hold. The patient is started on a liberal diet. 2. Acute onset of shortness of breath with acute hypoxic respiratory failure and acute respiratory distress syndrome. The patient is comfort care and so, he has been admitted to a non-monitored floor. A CT of the chest will be ordered [place], [place] PATIENT HISTORY AND PHYSICAL EXAM NAME: CIARA AVILES UNIT #: [id number] ROOM: [facility] DOCTOR: BRIANA OBREGON MD BIRTHDATE: [birth year] to rule out underlying infectious process. He does have an elevated white cell count and continued low grade fever. Chest x-ray is calling it as CHF, which I doubt. 3. Recent cerebrovascular accident with adult failure to thrive, should go back to the [facility] when stable. 4. Benign hypertension, controlled. Continue some of his home meds. 5. Stage II ulcer of the left heel, Medi Honey application with heel . 6. Chronic renal failure stage IV. The patient will be followed closely. This could be from diabetic nephropathy. We will avoid nephrotoxic meds right now. BRIANA OBREGON MD CM:HISPHYS:PATIENT HISTORY AND PHYSICAL EXAMINATION [id number] BRIANA OBREGON MD 11/02/17 0834 interface
--- NOTE | ~2017-11-01 | PR ---
[place], [place] PROGRESS NOTE NAME: CIARA AVILES UNIT #: [id number] ROOM: 504 DOCTOR: LIONEL CORLEY MD BIRTHDATE: [birth year] DOS: 11/06/2017 SUBJECTIVE: The patient has been noted comfortable at this time without any distress. He has been noted with significant improvement in the oxygenation in the last 24 hours. The patient has not been noted with any symptoms of hemodynamic instability. Chest congestion was also noted decreased. The patient was currently getting high-flow oxygen supplementation with Venturi mask. OBJECTIVE: VITAL SIGNS: For the patient, which has been recorded shows a normal temperature, respiratory rate recorded at 18-24, heart rate of 82, blood pressure 138/68-122/74. The pulse oxygen saturation was noted as 97% on 70% oxygen, previously noted 100% oxygen saturation. HEENT: Examination shows head was atraumatic. Eyes nonicterus. NECK: Supple. CARDIOVASCULAR: S1, S2 audible. LUNGS: The patient was noted with crackles and decreased breath sounds in the lower portion of the lungs bilaterally previously. ABDOMEN: Soft, nontender. Bowel sounds present. EXTREMITIES: The patient was noted without any acute distress. MUSCULOSKELETAL SYMPTOMS: Without any acute deformities. LABORATORY DATA: The BMP that was done this morning showed BUN 69, creatinine 3.40, glucose 348. CBC: WBC count 16.2, hemoglobin 9.5 and 28.5. IMPRESSION: The patient with severe acute hypoxic respiratory failure, combination, possible acute pneumonia, compression atelectasis, bilateral pleural fluid, congestive heart failure with current worsening of the kidney functions also noted and the oxygenation was noted better. PLAN OF MANAGEMENT: Continuation of the current therapy, plan of management, comfort measures, oxygen supplementation, antibiotics, other treatment with expectant care. The prognosis of the patient remains poor. [place], [place] PROGRESS NOTE NAME: CIARA AVILES UNIT #: [id number] ROOM: 504 DOCTOR: LIONEL CORLEY MD BIRTHDATE: [birth year] LIONEL WHATLEY MD CM:PNTRANS [phone] LIONEL MARCUS MD 11/07/17 0132 interface
--- NOTE | ~2017-11-01 | PR ---
[place], [place] PROGRESS NOTE NAME: CIARA AVILES UNIT #: [id number] ROOM: 504 DOCTOR: LIONEL CORLEY MD BIRTHDATE: [birth year] DOS: 11/07/2017 PULMONARY PROGRESS NOTE SUBJECTIVE: The patient is noted comfortable at this time. He is still using high flow Venturi oxygen flow system. He has been noted comfortable. Currently planned for the PICC line insertion, which was ordered by the primary care attending. He does have mild cough without any sputum expectoration. OBJECTIVE: VITAL SIGNS: Normal temperature, respiratory rate 20, heart rate 90, blood pressure 128/70. The pulse oxygen saturation of the patient was recorded as 93% saturation. HEENT: Showed no new change. NECK: Supple. CARDIOVASCULAR: S1, S2 audible. LUNGS: Decreased breath sounds were noted in the lungs previously with scattered crackles. ABDOMEN: Soft, nontender. EXTREMITIES: Without any edema. LABORATORY DATA: Chest x-ray done this morning for the patient was noted with congestive heart failure seemed to be somewhat better, still noted with pleural effusions bilaterally. IMPRESSION: 1. The patient with acute congestive heart failure, remains persistent with some improvement noted in the respiratory status with decreased oxygen requirement. 2. Bilateral pleural fluid ____. PLAN OF MANAGEMENT: Continuation of the bronchodilators, diuretic therapy and antibiotic for the patient for suspected pneumonia. At this time, the antibiotic spectrum will be changed for this patient because of lack of evidence of any culture supporting the use of multiple antibiotics. The patient's vancomycin and the Rocephin will be discontinued. Continue on the Levaquin at this time, the only antibiotic which would give coverage for the gram-positive and gram-negative organisms. [place], [place] PROGRESS NOTE NAME: CIARA AVILES UNIT #: [id number] ROOM: 504 DOCTOR: LIONEL CORLEY MD BIRTHDATE: [birth year] LIONEL WHATLEY MD CM:PNTRANS [phone] LIONEL MARCUS MD 11/08/17 0001 interface
--- NOTE | ~2017-11-01 | PR ---
[place], [place] PROGRESS NOTE NAME: CIARA AVILES UNIT #: [id number] ROOM: 504 DOCTOR: BRIANA OBREGON MD BIRTHDATE: [birth year] DOS: 11/07/2017 SUBJECTIVE: The patient is sitting up, eating his breakfast, is much better than the last few days. OBJECTIVE: VITAL SIGNS: Graphic trend shows blood pressure 128/70, pulse of 90, respirations 20, temperature 98.7. LUNGS: Diminished breath sounds, much clearer this morning. HEART: Regular. ABDOMEN: Soft. EXTREMITIES: Without any edema. LABORATORY DATA: White cell count is 8.9, hemoglobin 8.9, hematocrit 27.0, platelets 316. BMP: Glucose 95, BUN 63, creatinine 2.68. Electrolytes were normal. ASSESSMENT AND PLAN: 1. This is a patient who presents with multifocal pneumonia, on IV antibiotics. The patient is stable and improving. 2. Acute hypoxic respiratory failure. It is also much better. He is less tachypneic and he is tolerating his high flow O2, saturations are in the high 90s. 3. Acute kidney injury, possibly from acute tubular necrosis from hypotension, which is also improving. 4. Type 2 diabetes mellitus. Blood sugars are controlled, this morning is 109. The plan is to discharge him back to the assisted. He is agreeable to have a PICC line placed for IV antibiotics. BRIANA OBREGON MD CM:PNTRANS [phone] BRIANA OBREGON MD 11/07/17 0840 interface
--- NOTE | ~2017-11-01 | PR ---
[place], [place] PROGRESS NOTE NAME: CIARA AVILES UNIT #: [id number] ROOM: 504 DOCTOR: BRIANA OBREGON MD BIRTHDATE: [birth year] DOS: 11/06/2017 SUBJECTIVE: The patient is resting comfortably this morning. He does not have any complaints. He appears to be less short of breath. PHYSICAL EXAMINATION: VITAL SIGNS: Pressure is 125/73, pulse of 89, respirations 18, temperature 97.9. LUNGS: Diminished breath sounds, a few scattered rhonchi, again has considerably improved from the last few days. HEART: Regular. ABDOMEN: Obese, soft, nontender. EXTREMITIES: Without any edema. ASSESSMENT AND PLAN: 1. Multifocal pneumonia, on intravenous antibiotics with definite improvement. 2. Adult failure to thrive. The patient to go back to [facility] when stable. His overall prognosis remains poor and guarded, may have to discuss hospice condition with the patient and his family. 3. Acute hypoxic respiratory failure, stable on the bilevel positive airway pressure and high-flow oxygen. Dr. Clark was consulted. He feels that the patient is not a candidate for any procedures like bronchoscopy. We will ask social service to make arrangements for him to move to [place]. BRIANA OBREGON MD CM:PNTRANS [id number] BRIANA OBREGON MD 11/06/17 0859 interface
--- NOTE | ~2017-11-01 | PR ---
[place], [place] PROGRESS NOTE NAME: CIARA AVILES [facility] [id number] UNIT #: [id number] ROOM: 504 DOCTOR: BRIANA OBREGON MD BIRTHDATE: [birth year] DOS: 11/03/2017 SUBJECTIVE: The patient is resting comfortably today. He is much improved from yesterday. CT scans did show that he had underlying pneumonia and not CHF. His fever is resolving. OBJECTIVE: VITAL SIGNS: Temperature is 152/79, pulse of 105, respirations 18, temperature 98.5. LUNGS: Diminished breath sounds, scattered rhonchi which is again better than yesterday. HEART: Regular. ABDOMEN: Obese, soft. EXTREMITIES: Without any edema. ASSESSMENT AND PLAN: 1. Multifocal pneumonia involving multiple lobes. The patient is on IV antibiotics. Fevers did come down, but spiked again this morning, so will readjust antibiotics again. We will discontinue doxycycline and azithromycin and place him on vancomycin and Rocephin. He most likely has a nosocomial pneumonia since he was hospitalized just short 2 weeks ago and he has been in a prison since then. 2. Acute hypoxic respiratory failure. Continue high-flow O2. Saturation should improve once the pneumonia gets better. 3. Type 2 diabetes mellitus with hypoglycemia. Sugars have started to go up, we will add low dose Lantus. BRIANA OBREGON MD CM:PNTRANS [phone] BRIANA OBREGON MD 11/03/17 1956 interface
[~2017-11-01 12:54] MED LIST changes: +AGGRENOX 25/2001 EA PO; +ASPIRIN81 M1 PO; +CLOPIDOGREL75 MG PO; +HUMALOG MI100 UNIT/1 SQ; +HUMALOG100 UNIT/2 SC; +IRON325 M1 PO; +LANTUS SOL100 UNIT/1 SQ; +LOMOTIL 2.5-0.1 EACH PO; +LOPRESSOR25 MG PO; +MILLTRIUM SENI1 EACH PO; +NIFEDIPINE ER30 M1 PO; +OMEPRAZOLE20 M2 PO; +TRAZODONE50 MG PO; +VITAMIN D-32000 UNI1 PO
[2017-11-01 13:02] VITALS: BP 82/42
[2017-11-01] MEDS ORDERED: LANTUS SOL100 UNIT/1 SC (13:12)
[2017-11-01] MEDS ORDERED: PROCARDIA XL30 MG PO (13:13)
[2017-11-01] MEDS ORDERED: ATORVASTATIN CA10 M1 PO (13:13)
[2017-11-01] MEDS ORDERED: TRAZODONE50 MG PO (13:13)
[2017-11-01] MEDS ORDERED: GLUCAGON EMERGEN1 M1 IM (13:13)
[2017-11-01] MEDS ORDERED: HUMALOG100 UNIT/2 SQ (13:14)
[2017-11-01] MEDS ORDERED: LOPRESSOR25 MG PO (13:15)
[2017-11-01] MEDS ORDERED: OMEPRAZOLE MAGN20 MG PO (13:15)
[2017-11-01] MEDS ORDERED: NEURONTIN300 MG PO (13:15)
[2017-11-01] MEDS ORDERED: MULTIPLE VITAM1 EAC1 PO (13:15)
[2017-11-01] MEDS ORDERED: IRON325 M1 PO (13:16)
[2017-11-01] MEDS ORDERED: VITAMIN D31000 UNI1 PO (13:16)
[2017-11-01] MEDS ORDERED: ASPIRIN81 M1 PO (13:16)
[2017-11-01] MEDS ORDERED: LOMOTIL 2.5-0.1 EACH PO (13:17)
[2017-11-01 13:21] LABS: BASO % 0.1 % (0.0-1.0); EOS # 0.2 10*3/uL (0.0-0.4); HEMOGLOBIN 8.1 g/dl (14.0-18.0); LYMPH # 1.3 10*3/uL (1.3-4.4); LYMPH % 12.5 % (27.0-41.0); MEAN CELL VOLUME 88.7 fl (80.0-94.0); MEAN CORPUSCULAR HGB 28.7 pg (27.0-31.0); MEAN CORPUSCULAR HGB CONC 32.4 g/dl (33.0-37.0); MEAN PLATELET VOLUME 8.5 fl (9.6-12.3); MONO # 0.9 10*3/uL (0.1-1.0); MONO % 8.7 % (3.0-9.0); NEUT # 7.6 10*3/uL (2.3-7.9); PLATELET COUNT AUTOMATED 268 10*3/uL (130-400); RED BLOOD COUNT 2.82 10*6/uL (4.50-5.90); RED CELL DISTRI WIDTH 14.2 % (0-14.5); WHITE BLOOD COUNT 10.1 10*3/uL (4.8-10.8)
[2017-11-01 13:37] LABS: CREATININE 2.5 mg/dL (0.70-1.30); POTASSIUM 4.8 mmol/L (3.5-5.1); TOTAL PROTEIN 5.6 gm/dL (6.4-8.2)
[2017-11-01 13:52] VITALS: BP 119/63
[2017-11-01 14:22] LABS: BILIRUBIN NEGATIVE (NEGATIVE); BLOOD NEGATIVE (NEGATIVE); CLARITY SL CLOUDY (CLEAR); COLOR YELLOW (YELLOW); GLUCOSE TRACE (NEGATIVE); KETONE NEGATIVE (NEGATIVE); LEUKO ESTERASE NEGATIVE (NEGATIVE); NITRITE NEGATIVE (NEGATIVE); PH 5.5 (5.0-9.0); UROBILINOGEN 0.2 E.U./dl (0.2-1.0)
[2017-11-01 14:28] LABS: RBC 0-2 rbc/hpf (0-2)
[2017-11-01 14:29] LABS: BACTERIA 4+; EPITHELIAL CELLS 0-2
[2017-11-01 14:39] VITALS: BP 122/60
[2017-11-01 15:01] VITALS: BP 113/65
[2017-11-01 16:00] VITALS: BP 93/55
[2017-11-01 20:00] VITALS: BP 116/59
[2017-11-02 04:00] VITALS: BP 108/62
[2017-11-02 06:11] LABS: CREATININE 2.66 mg/dL (0.70-1.30); POTASSIUM 4.5 mmol/L (3.5-5.1)
[2017-11-02 06:19] LABS: BASO % 0.1 % (0.0-1.0); EOS % 0.1 % (1.0-4.0); HEMATOCRIT 29.1 % (42.0-52.0); HEMOGLOBIN 9.5 g/dl (14.0-18.0); LYMPH # 0.6 10*3/uL (1.3-4.4); LYMPH % 3.8 % (27.0-41.0); MEAN CORPUSCULAR HGB 29.1 pg (27.0-31.0); MEAN CORPUSCULAR HGB CONC 32.6 g/dl (33.0-37.0); MONO % 6.7 % (3.0-9.0); NEUT # 13.4 10*3/uL (2.3-7.9); NEUT % 88.6 % (47.0-73.0); PLATELET COUNT AUTOMATED 308 10*3/uL (130-400); RED BLOOD COUNT 3.27 10*6/uL (4.50-5.90); WHITE BLOOD COUNT 15.2 10*3/uL (4.8-10.8)
[2017-11-02 09:31] VITALS: BP 99/66
[2017-11-02 12:00] VITALS: BP 77/49
[2017-11-02 12:35] VITALS: BP 86/54
[2017-11-02 16:00] VITALS: BP 83/49
[2017-11-02 20:00] VITALS: BP 126/66
[2017-11-03] VITALS: BP 152/79
[2017-11-03 07:43] LABS: BASO % 0.2 % (0.0-1.0); HEMATOCRIT 27.6 % (42.0-52.0); HEMOGLOBIN 8.9 g/dl (14.0-18.0); LYMPH # 0.8 10*3/uL (1.3-4.4); LYMPH % 4.6 % (27.0-41.0); MEAN CELL VOLUME 88.2 fl (80.0-94.0); MEAN CORPUSCULAR HGB 28.4 pg (27.0-31.0); MEAN CORPUSCULAR HGB CONC 32.2 g/dl (33.0-37.0); MEAN PLATELET VOLUME 9.1 fl (9.6-12.3); MONO # 1.1 10*3/uL (0.1-1.0); MONO % 5.9 % (3.0-9.0); NEUT # 16.1 10*3/uL (2.3-7.9); NEUT % 88.4 % (47.0-73.0); PLATELET COUNT AUTOMATED 263 10*3/uL (130-400); RED BLOOD COUNT 3.13 10*6/uL (4.50-5.90); RED CELL DISTRI WIDTH 14.2 % (0-14.5); WHITE BLOOD COUNT 18.2 10*3/uL (4.8-10.8)
[2017-11-03 08:00] VITALS: BP 101/66
[2017-11-03 08:12] LABS: CREATININE 2.89 mg/dL (0.70-1.30); POTASSIUM 4.5 mmol/L (3.5-5.1)
[2017-11-03 11:42] VITALS: BP 96/57
[2017-11-03 16:00] VITALS: BP 111/68
[2017-11-03 20:00] VITALS: BP 108/67
[2017-11-04] VITALS: BP 101/62
[2017-11-04 04:00] VITALS: BP 120/65
[2017-11-04 08:00] VITALS: BP 120/74
[2017-11-04 12:00] VITALS: BP 107/68
[2017-11-04 16:00] VITALS: BP 100/62
[2017-11-04 20:00] VITALS: BP 129/78
[2017-11-05] VITALS (7 sets, daily range): BP systolic 125–138; BP diastolic 64–79
[2017-11-05 06:20] LABS: BASO % 0.1 % (0.0-1.0); HEMATOCRIT 28.5 % (42.0-52.0); HEMOGLOBIN 9.5 g/dl (14.0-18.0); LYMPH # 0.7 10*3/uL (1.3-4.4); LYMPH % 4.6 % (27.0-41.0); MEAN CELL VOLUME 88.2 fl (80.0-94.0); MEAN CORPUSCULAR HGB 29.4 pg (27.0-31.0); MEAN CORPUSCULAR HGB CONC 33.3 g/dl (33.0-37.0); MEAN PLATELET VOLUME 9.4 fl (9.6-12.3); MONO % 6.1 % (3.0-9.0); NEUT # 14.3 10*3/uL (2.3-7.9); NEUT % 88.6 % (47.0-73.0); PLATELET COUNT AUTOMATED 294 10*3/uL (130-400); RED BLOOD COUNT 3.23 10*6/uL (4.50-5.90); WHITE BLOOD COUNT 16.2 10*3/uL (4.8-10.8)
[2017-11-05 06:51] LABS: POTASSIUM 4.9 mmol/L (3.5-5.1)
[2017-11-05 06:53] LABS: CREATININE 3.4 mg/dL (0.70-1.30)
[2017-11-06 08:00] VITALS: BP 122/74
[2017-11-06 12:00] VITALS: BP 138/68
[2017-11-06 16:00] VITALS: BP 152/84
[2017-11-06 20:00] VITALS: BP 126/60
[2017-11-07] VITALS: BP 137/77
[2017-11-07 06:16] LABS: BASO % 0.1 % (0.0-1.0); EOS # 0.2 10*3/uL (0.0-0.4); HEMOGLOBIN 8.9 g/dl (14.0-18.0); LYMPH # 1.1 10*3/uL (1.3-4.4); LYMPH % 12.1 % (27.0-41.0); MEAN CELL VOLUME 86.8 fl (80.0-94.0); MEAN CORPUSCULAR HGB 28.6 pg (27.0-31.0); MONO # 0.9 10*3/uL (0.1-1.0); MONO % 9.5 % (3.0-9.0); NEUT # 6.7 10*3/uL (2.3-7.9); NEUT % 75.2 % (47.0-73.0); PLATELET COUNT AUTOMATED 316 10*3/uL (130-400); RED BLOOD COUNT 3.11 10*6/uL (4.50-5.90); RED CELL DISTRI WIDTH 14.1 % (0-14.5); WHITE BLOOD COUNT 8.9 10*3/uL (4.8-10.8)
[2017-11-07 06:46] LABS: CREATININE 2.68 mg/dL (0.70-1.30); POTASSIUM 4.2 mmol/L (3.5-5.1)
[2017-11-07 08:00] VITALS: BP 128/70
[2017-11-07 11:41] VITALS: BP 130/68
[2017-11-07 16:00] VITALS: BP 125/72
[2017-11-07 20:00] VITALS: BP 122/65
[2017-11-08] VITALS: BP 136/77
[2017-11-08 08:00] VITALS: BP 109/62; BP 131/60
[2017-11-08 12:00] VITALS: BP 118/60
== END 2017-11-08 14:37 | disposition hospice, home (50) | DRG 291 ==
LOC: ED 12:54 → 5E 14:47 → EDHOLD 14:47 → 5E 15:02
PROVIDERS: Emergency Medicine; Internal Medicine
PROC: 02HV33Z Insertion of Infusion Device into Superior Vena Cava, Percutaneous Approach (ICD-10-PCS; principal; 2017-11-07)
DX: I13.0 Hypertensive heart and chronic kidney disease with heart failure and stage 1 through stage 4 chronic kidney disease, or unspecified chronic kidney disease (principal); J18.1 Lobar pneumonia, unspecified organism; J96.01 Acute respiratory failure with hypoxia; N17.0 Acute kidney failure with tubular necrosis; N18.4 Chronic kidney disease, stage 4 (severe); E11.649 Type 2 diabetes mellitus with hypoglycemia without coma; E11.22 Type 2 diabetes mellitus with diabetic chronic kidney disease; L89.622 Pressure ulcer of left heel, stage 2; I50.31 Acute diastolic (congestive) heart failure; E44.1 Mild protein-calorie malnutrition; F32.9 Major depressive disorder, single episode, unspecified; E78.2 Mixed hyperlipidemia; Z51.5 Encounter for palliative care; R62.7 Adult failure to thrive; T50.2X5A Adverse effect of carbonic-anhydrase inhibitors, benzothiadiazides and other diuretics, initial encounter; Z66 Do not resuscitate; Z53.29 Procedure and treatment not carried out because of patient's decision for other reasons; Z96.641 Presence of right artificial hip joint; R53.81 Other malaise; Z86.73 Personal history of transient ischemic attack (TIA), and cerebral infarction without residual deficits; Z85.46 Personal history of malignant neoplasm of prostate; Y92.89 Other specified places as the place of occurrence of the external cause; Z68.26 Body mass index [BMI] 26.0-26.9, adult; Z88.0 Allergy status to penicillin; Z79.899 Other long term (current) drug therapy; Z80.0 Family history of malignant neoplasm of digestive organs

== ENCOUNTER 2017-11-08 14:40 | Inpatient (IN) | payer OTHER, MEDICARE ==
[~2017-11-08] VITALS: Ht 170.2 cm; Wt 79.5 kg
--- NOTE | ~2017-11-08 | WRIGHTHP ---
[place], [place] PATIENT HISTORY AND PHYSICAL EXAM NAME: CIARA AVILES UNIT #: [id number] ROOM: 504 DOCTOR: BRIANA OBREGON MD BIRTHDATE: [birth year] DOS: 11/08/2017 HISTORY OF PRESENT ILLNESS: This patient is very well known to us. He has been admitted with pneumonia, bilateral, multifocal with mild congestive heart failure and hypoxic respiratory failure. He did not improve with conventional treatment plan with broad spectrum antibiotics and so, he has been made hospice care. He has been discharged out of the regular admission. The patient denies having any complaints this morning. He is a little bit more awake this morning and not as lethargic. Denies having any complaints except that the noises of the different machines are bothering him. PAST MEDICAL HISTORY: Significant for: 1. Chronic hypoxic respiratory failure requiring high flow O2. 2. Bilateral pneumonia. 3. Mild diastolic congestive heart failure. 4. Chronic kidney disease. 5. Type 2 diabetes mellitus, insulin-dependent with hypoglycemia. 6. CA prostate. PHYSICAL EXAMINATION: GENERAL: The patient is awake, alert, and oriented. VITAL SIGNS: Blood pressure is 121/60, pulse of 99, respirations 19, temperature 99.3. LUNGS: Diminished breath sounds, scattered wheezes and rhonchi. HEART: Regular. ABDOMEN: Obese, soft. EXTREMITIES: Without any edema. Multiple blood cultures have come back negative. ASSESSMENT AND PLAN: 1. Acute hypoxic respiratory failure from underlying pneumonia and bilateral pleural effusions with a mild diastolic congestive heart failure. The patient has been receiving maximal treatment plan with multiple antibiotics and diuretics for several days now and still requiring high flow O2 and because of lack of improvement, the patient has been admitted to hospice care, started on Dilaudid for respiratory distress. He has been admitted to an inpatient hospice care. 2. Type 2 diabetes mellitus. He is given a liberal diet. We will cover with insulin as needed. He is also on a low dose of Lantus insulin to avoid hypoglycemia. [place], [place] PATIENT HISTORY AND PHYSICAL EXAM NAME: CIARA AVILES UNIT #: [id number] ROOM: 504 DOCTOR: BRIANA OBREGON MD BIRTHDATE: [birth year] BRIANA OBREGON MD CM:STEPHS:PATIENT HISTORY AND PHYSICAL EXAMINATION [phone] BRIANA OBREGON MD 11/09/17 0734 interface
--- NOTE | ~2017-11-08 | DS ---
[place], [place] DISCHARGE SUMMARY [facility]ES [id number] UNIT #: [id number] ROOM: 504 DOCTOR: BRIANA OBREGON MD BIRTHDATE: [birth year] DOS: HISTORY OF PRESENT ILLNESS: The patient was originally admitted to the hospital on . He was placed on hospice on the because of continued terminal and irreversible condition with high flow O2 requirement. The hospice was discontinued on the and was placed on a regular admission because of continued improvement and decrease in the oxygen requirement. DIAGNOSES: 1. Multifocal pneumonia. 2. Acute hypoxic respiratory failure. 3. Hypoglycemia on type 2 diabetes mellitus, insulin-dependent. 4. Adult failure to thrive. 5. Acute diastolic congestive heart failure. 6. New onset atrial fibrillation. 7. History of cancer of prostate. 8. Benign hypertension. MEDICATIONS ON DISCHARGE: Will be Eliquis 5 mg twice a day, Lopressor 25 mg b.i.d., atorvastatin 10 mg daily, Procardia-XL 30 at bedtime, omeprazole 20 daily, gabapentin 300 mg twice a day, multivitamin 1 tablet daily, vitamin D 2000 units daily, iron 325 daily, Lantus 10 units at 5:00 p.m., liberal diet, gabapentin 300 mg t.i.d., trazodone 50 at bedtime, Lomotil 1 tablet t.i.d. p.r.n. CODE STATUS: The patient's code status is comfort care. HOSPITAL COURSE: The patient has an extensive history. The patient had extensive stay here. He came in with complaints of acute onset of shortness of breath. He was hypoxic and in acute respiratory failure. His code status was comfort care. After admission to the hospital, he was placed on high flow O2, BiPAP, multiple antibiotics. Blood cultures were sent. The patient also had hypoglycemia. Lantus and NovoLog were kept on hold and the patient was given a liberal diet and later started on a lower dose of Lantus 10 units and the blood sugars have been fairly controlled. He continued to progress and worsen with continued hypoxemia. Even after 7-8 days of broad spectrum antibiotics, there was no improvement in his hypoxemia. At that time, he appeared terminal and Dr. Clark was consulted, who agreed on the continued treatment plan. He was not a candidate for bronchoscopy because of his overall unstable state. Condition was discussed with the family and they agreed on hospice care. Once he was placed on hospice care, he has shown remarkable improvement. His oxygen requirement has slowly cut back and now down to just 5 liters of regular 202. His lung sound much better, with chest x-ray showing resolution of the CHF and the pneumonia. The patient does have irregular heartbeat and most likely is new onset AFib and has been placed on Eliquis and a high dose of metoprolol. The rate is controlled. Social Service has been consulted after hospice was discontinued. The patient will transfer [facility] and continue PT/OT. His overall condition is unstable and poor and should continue supportive and symptomatic care at the [place], [place] DISCHARGE SUMMARY NAME: CIARA AVILES UNIT #: [id number] ROOM: [facility] DOCTOR: BRIANA OBREGON MD BIRTHDATE: [birth year] prison. Please admit the patient under Dr. Pham's services. BRIANA OBREGON MD CM:OFELIA [phone] BRIANA OBREGON MD 11/12/17 1307 interface
--- NOTE | ~2017-11-08 | PR ---
[place], [place] PROGRESS NOTE NAME: CIARA AVILES UNIT #: [id number] ROOM: 504 DOCTOR: BRIANA OBREGON MD BIRTHDATE: [birth year] DOS: SUBJECTIVE: The patient looks much better, does not have any complaints. He states that his appetite is poor and does not want to eat much food, did not need any help. OBJECTIVE: VITAL SIGNS: Blood pressure is 113/54, pulse of 96, respirations 18, temperature 98.3. LUNGS: Diminished breath sounds, clearer this morning. HEART: Regular. ABDOMEN: Obese, soft. EXTREMITIES: Without any edema. ASSESSMENT AND PLAN: 1. Multifocal pneumonia with acute hypoxic respiratory failure, improving slowly on current treatment plan. 2. The patient is currently placed on hospice care and continues to remain on hospice care. The oxygen requirement seems to have reduced and his oxygen levels are maintained on 6 liters of high flow O2 now. We will continue tapering it down and hopefully if he remains stable, may consider discontinuing hospice and discharge him back to the halfway at that time. BRIANA OBREGON MD CM:PNTRANS [id number] BRIANA OBREGON MD 11/10/17 1141 interface
--- NOTE | ~2017-11-08 | PR ---
[place], [place] PROGRESS NOTE NAME: CIARA AVILES UNIT #: [id number] ROOM: 504 DOCTOR: BRIANA OBREGON MD BIRTHDATE: [birth year] DOS: 11/11/2017 SUBJECTIVE: The patient is much improved. He wants to go home. OBJECTIVE: VITAL SIGNS: Graphic shows a pressure of 118/59, pulse of 99, respirations 18, temperature 98.9.1 LUNGS: Diminished breath sounds, clear this morning. HEART: Regular. ABDOMEN: Obese, soft, nontender. EXTREMITIES: With some shiny taut skin noted. ASSESSMENT AND PLAN: 1. Bilateral multifocal pneumonia which is definitely improving clinically. 2. Acute hypoxic respiratory failure. His oxygen requirement has come down. Discussed with case management. Since there is definite improvement, we will do a chest x-ray and routine labs and will try to arrange for discharge to [facility], may not need hospice any longer. BRIANA OBREGON MD CM:PNTRANS [phone] BRIANA OBREGON MD 11/11/17 1303 interface
[~2017-11-08 14:40] MED LIST changes: +ATORVASTATIN CA10 M1 PO; +GLUCAGON EMERGEN1 M1 IM; +HUMALOG100 UNIT/2 SQ; +MULTIPLE VITAM1 EAC1 PO; +OMEPRAZOLE MAGN20 MG PO; +PROCARDIA XL30 MG PO; +VITAMIN D31000 UNI1 PO
[2017-11-08 16:00] VITALS: BP 119/66
[2017-11-08 20:00] VITALS: BP 134/68
[2017-11-09] VITALS: BP 121/60
[2017-11-09 08:00] VITALS: BP 106/56
[2017-11-09 12:00] VITALS: BP 116/61
[2017-11-09 16:35] VITALS: BP 124/71
[2017-11-10] VITALS: BP 121/61
[2017-11-10 08:00] VITALS: BP 113/54
[2017-11-10 12:00] VITALS: BP 119/55
[2017-11-10 16:43] VITALS: BP 115/46
[2017-11-10 19:58] VITALS: BP 125/62
[2017-11-11] VITALS: BP 108/51
[2017-11-11 08:00] VITALS: BP 118/59
[2017-11-11 12:00] VITALS: BP 103/56
[2017-11-12] MEDS ORDERED: LOPRESSOR25 MG PO (08:38)
== END 2017-11-11 16:13 | disposition short-term general hospital (02) | DRG 193 ==
LOC: 5E 14:40
DX: J18.9 Pneumonia, unspecified organism (principal); I50.31 Acute diastolic (congestive) heart failure; J96.21 Acute and chronic respiratory failure with hypoxia; J90 Pleural effusion, not elsewhere classified; I13.0 Hypertensive heart and chronic kidney disease with heart failure and stage 1 through stage 4 chronic kidney disease, or unspecified chronic kidney disease; E11.649 Type 2 diabetes mellitus with hypoglycemia without coma; Z51.5 Encounter for palliative care; N18.9 Chronic kidney disease, unspecified; E11.22 Type 2 diabetes mellitus with diabetic chronic kidney disease; Z66 Do not resuscitate; R62.7 Adult failure to thrive; I48.91 Unspecified atrial fibrillation; Z85.46 Personal history of malignant neoplasm of prostate

== ENCOUNTER 2017-11-11 16:17 | Inpatient (IN) | payer MEDICARE ==
[~2017-11-11] VITALS: Ht 170.2 cm; Wt 80.0 kg
--- NOTE | ~2017-11-11 | DS ---
[place], [place] DISCHARGE SUMMARY [id number] UNIT #: [id number] ROOM: 504 DOCTOR: BRIANA OBREGON MD BIRTHDATE: [birth year] DOS: HISTORY OF PRESENT ILLNESS: The patient was originally admitted to the hospital on . He was placed on hospice on the because of continued terminal and irreversible condition with high flow O2 requirement. The hospice was discontinued on the and was placed on a regular admission because of continued improvement and decrease in the oxygen requirement. DIAGNOSES: 1. Multifocal pneumonia. 2. Acute hypoxic respiratory failure. 3. Hypoglycemia on type 2 diabetes mellitus, insulin-dependent. 4. Adult failure to thrive. 5. Acute diastolic congestive heart failure. 6. New onset atrial fibrillation. 7. History of cancer of prostate. 8. Benign hypertension. MEDICATIONS ON DISCHARGE: Will be Eliquis 5 mg twice a day, Lopressor 25 mg b.i.d., atorvastatin 10 mg daily, Procardia-XL 30 at bedtime, omeprazole 20 daily, gabapentin 300 mg twice a day, multivitamin 1 tablet daily, vitamin D 2000 units daily, iron 325 daily, Lantus 10 units at 5:00 p.m., liberal diet, gabapentin 300 mg t.i.d., trazodone 50 at bedtime, Lomotil 1 tablet t.i.d. p.r.n. CODE STATUS: The patient's code status is comfort care. HOSPITAL COURSE: The patient has an extensive history. The patient had extensive stay here. He came in with complaints of acute onset of shortness of breath. He was hypoxic and in acute respiratory failure. His code status was comfort care. After admission to the hospital, he was placed on high flow O2, BiPAP, multiple antibiotics. Blood cultures were sent. The patient also had hypoglycemia. Lantus and NovoLog were kept on hold and the patient was given a liberal diet and later started on a lower dose of Lantus 10 units and the blood sugars have been fairly controlled. He continued to progress and worsen with continued hypoxemia. Even after 7-8 days of broad spectrum antibiotics, there was no improvement in his hypoxemia. At that time, he appeared terminal and Dr. Clark was consulted, who agreed on the continued treatment plan. He was not a candidate for bronchoscopy because of his overall unstable state. Condition was discussed with the family and they agreed on hospice care. Once he was placed on hospice care, he has shown remarkable improvement. His oxygen requirement has slowly cut back and now down to just 5 liters of regular 202. His lung sound much better, with chest x-ray showing resolution of the CHF and the pneumonia. The patient does have irregular heartbeat and most likely is new onset AFib and has been placed on Eliquis and a high dose of metoprolol. The rate is controlled. Social Service has been consulted after hospice was discontinued. The patient will transfer back to [facility] and continue PT/OT. His overall condition is unstable and poor and should continue supportive and symptomatic care at the [place], [place] DISCHARGE SUMMARY NAME: CIARA AVILES UNIT #: [id number] ROOM: [facility] DOCTOR: BRIANA OBREGON MD BIRTHDATE: [birth year] half-way. Please admit the patient under Dr. Pham's services. BRIANA OBREGON MD CM:OFELIA [phone] BRIANA OBREGON MD 11/12/17 1312 [email or web address]
--- NOTE | ~2017-11-11 | PR ---
[place], [place] PROGRESS NOTE [facility]: [facility]ILES [id number] UNIT #: [id number] ROOM: 504 DOCTOR: BRIANA OBREGON MD BIRTHDATE: [birth year] DOS: SUBJECTIVE: The patient is sleepy today, but does not have any new complaints. His oxygen requirement has come down to 5 liters of regular oxygen. OBJECTIVE EXAMINATION: GENERAL: The patient is awake. VITAL SIGNS: Blood pressure is 122/88, pulse 116, respirations 17, temperature 97.7. LUNGS: Diminished breath sounds, clear. HEART: Irregular. ABDOMEN: Obese. EXTREMITIES: Without any edema. ASSESSMENT AND PLAN: 1. The patient with acute hypoxic respiratory failure from multifocal pneumonia. This has finally improved and his hypoxemia has corrected. He is now on regular oxygen rather than a high flow. Because of his overall poor prognosis and terminal and irreversible condition, he was placed on hospice, but he has made a remarkable improvement and he now has been discontinued off the hospice and placed on regular floor. 2. Atrial fibrillation, not sure whether he has had atrial fibrillation in the past, but he is irregular right now A low dose of Eliquis will be started when discharged along with a better rate control with high dose of beta blockers. 3. Type 2 diabetes mellitus with hypoglycemia. For some reason, he was started on his older dose of Levemir yesterday. He was only on 10 units for the last several days. This caused the blood sugar did drop, so we will discontinue his insulin for right now and continue coverage scale. The patient is overall stable and will be discharged back to [facility], continue comfort care there and he will be started on therapy there. BRIANA OBREGON MD CM:PNTRANS [phone] BRIANA OBREGON MD 11/12/17 0850 interface
[2017-11-11 20:46] VITALS: BP 124/59
[2017-11-12 00:25] VITALS: BP 135/76
[2017-11-12 08:00] VITALS: BP 122/88
[2017-11-12] MEDS ORDERED: LOPRESSOR25 MG PO (08:38)
== END 2017-11-12 14:27 | disposition other institution (70) | DRG 189 ==
LOC: 5E 16:17
DX: J96.21 Acute and chronic respiratory failure with hypoxia (principal); J18.9 Pneumonia, unspecified organism; E11.22 Type 2 diabetes mellitus with diabetic chronic kidney disease; E11.649 Type 2 diabetes mellitus with hypoglycemia without coma; I50.30 Unspecified diastolic (congestive) heart failure; I48.91 Unspecified atrial fibrillation; Z99.81 Dependence on supplemental oxygen; Z66 Do not resuscitate; N18.9 Chronic kidney disease, unspecified; Z51.5 Encounter for palliative care; Z79.01 Long term (current) use of anticoagulants; Z85.46 Personal history of malignant neoplasm of prostate; Z79.899 Other long term (current) drug therapy; Z79.4 Long term (current) use of insulin